=== PATIENT | male | born 1975 | race Caucasian/White ===

== ENCOUNTER 2023-08-25 10:08 | Emergency (ER) | payer SELFPAY ==
[2023-08-25] MEDS ORDERED: dexAMETHasone 10 MG/ML VIAL ONE (10:58)
[2023-08-25] MEDS ORDERED: METOCLOPRAMIDE 10 MG/2mL INJ ONE (10:58)
[2023-08-25] MEDS ORDERED: DIPHENHYDRAMINE 50 MG/ML VIAL ONE (10:58)
[2023-08-25] MEDS ORDERED: NA CHLORIDE 0.9% 1,000 ML ONE ×2 (10:59→11:14)
[2023-08-25] MEDS ORDERED: KETOROLAC 30 MG/ML INJ ONE (10:59)
[2023-08-25 11:01] LABS: Absolute Lymphocytes (CBC) 1.3 K/uL (0.7-4.9); Lymphocytes % 9.1 % (15.3-44.8); MCV 101.7 fL (80-100); MPV 6.9 fL (7.6-11.3); Platelets 233 thou/uL (152-406); RBC Red Blood Cell Count 4.43 M/uL (4.33-5.43)
[2023-08-25 11:19] LABS: Albumin 3.4 g/dL (3.4-5.0); Bilirubin Total 0.4 mg/dL (0.2-1.0); Potassium 3.1 mEq/L (3.5-5.1); Protein, Total 8.7 g/dL (6.4-8.2)
[2023-08-25 11:41] LABS: SARS-CoV-2 Antigen Rapid Res Negative (Negative)
--- NOTE | 2023-08-25 12:31 | EDPHYS ---
Physician Documentation [facility] Name: Clinton Marr Age: 48 yrs Sex: Male : 1975 Arrival Date: 08/25/2023 Time: 10:08 Bed 4 Private MD: ED Physician Esdras Goodwin HPI: 08/25 10:21 This 48 yrs old Male presents to ER via Unassigned with complaints of Flu Symptoms, ec2 Shortness Of Breath, Decreased Appetite. 10:34 Patient arrives today due to concern for 1 week of symptoms of cough cold symptoms. ec2 Patient reports to be having some congestion as well as cough, sore throat, decreased appetite with associated nausea, vomiting, diarrhea. Patient reports sick contacts at home with patients that have been flu be positive as well as COVID-positive. Patient denies any significant medical problems but however does smoke approximately half pack per day. Patient with no known history of COPD or asthma.. Historical: - Allergies: 10:23 No Known Allergies; mb9 - Home Meds: 10:23 None [Active]; mb9 - PMHx: 10:23 None; mb9 - PSHx: 10:23 right hand; mb9 - Immunization history:: Adult Immunizations up to date. - Social history:: Smoking status: Patient reports the use of cigarette tobacco products, denies chronic smoking, but will smoke occasionally. ROS: 10:34 Constitutional: as per hpi ec2 Exam: 10:34 Constitutional: GEN: NAD Head: atraumatic Eyes: EOMI Ears: External ears are normal. ec2 Mouth: Posterior pharyngeal erythema without exudates, no anterior cervical lymphadenopathy appreciated. No evidence of stridor, no issues managing secretions CV: regular rate LUNGS: no respiratory distress, occasional scattered wheeze noted throughout all lung john[place], good aeration throughout all lung johnston ABD: non-distended SKIN: no evidence of rashes MSK: no evidence of trauma NEURO: moves all extremities equally Vital Signs: 10:21 BP 86 / 68; Pulse 110; Resp 18; Temp 97.5(O); Pulse Ox 100% on R/A; Weight 65.77 kg; mb9 Height 5 ft. 6 in. ; Pain 7/10; 10:32 BP 121 / 95; Pulse 95; ec2 10:58 BP 134 / 86; Pulse 88; Resp 19; Pulse Ox 99% on R/A; os 11:24 BP 140 / 84; Pulse 81; ec2 12:04 BP 130 / 82; Pulse 81; ec2 10:21 Body Mass Index 23.40 (65.77 kg, 167.64 cm) mb9 10:21 Pain Scale: Adult mb9 MDM: 10:18 Patient medically screened. ec2 10:34 ED course: I was immediately available for consultation during this patient's visit. I ec2 did not personally see the patient or guide the patient's care. Patient arrives today due to concern for URI signs and symptoms ongoing for 1 week with multiple sick contacts. Examination remarkable for individual who had triage vital signs with tachycardia and hypotension noted however immediate repeat vital signs in room with appropriate blood pressure and more appropriate heart rate. Will obtain lab work-up, treat the patient's symptoms with crystalloid, Toradol, antiemetic as well as Benadryl, will obtain labs as well as swabs. Currently considering viral process, lower suspicion process such as strep pharyngitis or pneumonia. . 11:07 ED course: Of note patient does meet SIRS criteria with the initial documented ec2 tachycardia and a leukocytosis however I have a low clinical no suspicion for an acute bacterial infection and will currently defer antibiotic and septic work-up at this time.. 11:21 ED course: Metabolic profile slight hypokalemia and slight hyponatremia with some renal ec2 dysfunction noted with a creatinine 1.66 and a GFR 51. We will continue with crystalloid administration, potassium administration as well. . 11:50 ED course: Patient is negative for flu, negative for strep and negative for COVID. ec2 Chest x-ray independently reviewed and interpreted by me, shows no acute intrathoracic process. . 12:31 Data reviewed: vital signs. ED course: On reassessment patient reports marked ec2 improvement in his symptoms. I suspect presentation is consistent with a viral process. Will discharge home, return precautions given.. 08/25 10:34 Order name: CBC with Diff; Complete Time: 11:07 ec2 08/25 10:34 Order name: CMP; Complete Time: 11:21 ec2 08/25 10:34 Order name: Strep; Complete Time: 11:46 ec2 08/25 10:34 Order name: SARS RAPID; Complete Time: 11:46 ec2 08/25 10:34 Order name: Influenza Screen (a \T\ B); Complete Time: 11:49 ec2 08/25 11:44 Order name: Throat Culture EDMS 08/25 10:34 Order name: CXR XRAY; Complete Time: 12:52 ec2 Administered Medications: 10:55 Drug: metoCLOPramide IVP 10 mg IVP once; over 1 to 2 minutes Route: IVP; Site: right os antecubital; 10:55 Drug: diphenhydrAMINE IVP 25 mg IVP once Route: IVP; Site: right antecubital; os 10:56 Drug: NS 0.9% IV 1000 ml IV at 1 bolus Per protocol; 1000 mL bolus Route: IV; Rate: 1 os bolus; Site: right antecubital; 10:56 Drug: Decadron - Dexamethasone IVP 10 mg IVP once Route: IVP; Site: right antecubital; os 10:56 Drug: Ketorolac IVP 15 mg IVP once Route: IVP; Site: right antecubital; os 12:50 Drug: Potassium Chloride PO 40 mEq PO once Route: PO; os Disposition Summary: 08/25/23 12:31 Discharge Ordered Notes: Location: Home ec2 Condition: Stable ec2 Diagnosis - Viral infection, unspecified ec2 Discharge Instructions: - Discharge Summary Sheet ec2 - Viral Illness, Adult ec2 Forms: - Medication Reconciliation Form ec2 - Thank You Letter ec2 - Antibiotic Education ec2 - Prescription Opioid Use ec2 - Patient Portal Instructions ec2 - Leadership Thank You Letter ec2 Prescriptions: - Reglan 10 mg Oral Tablet - take 1 tablet ORAL route every 6 hours take 30 minutes before meals and at ec2 bedtime; 20 tablet; Refills: 0, Product Selection Permitted Signatures: Dispatcher [employer] Marianne Holland RN RN mb9 Saman Kwong RN RN os Esdras Goodwin MD MD ec2
--- NOTE | 2023-08-25 12:31 | ER ---
Nurse's Notes [facility] Name: Clitnon Marr Age: 48 yrs Sex: Male : 1975 Arrival Date: 08/25/2023 Time: 10:08 Bed 4 Private MD: Diagnosis: Viral infection, unspecified Presentation: 08/25 10:21 Chief complaint: Patient states: "I've been around my niece and coworker who has the mb9 flu and COVID and i've been sick for a week now. I have body aches, sore throat, cough, N/V/D, and loss of appetite. My right ear is hard to hear things out of". Coronavirus screen: Vaccine status: Patient reports being unvaccinated. Ebola Screen: No symptoms or risks identified at this time. Initial Sepsis Screen: Does the patient meet any 2 criteria? No. Patient's initial sepsis screen is negative. Does the patient have a suspected source of infection? No. Patient's initial sepsis screen is negative. Risk Assessment: Do you want to hurt yourself or someone else? Patient reports no desire to harm self or others. Onset of symptoms was August 25, 2023. 10:21 Method Of Arrival: Ambulatory mb9 10:21 Acuity: JORDON 3 mb9 Triage Assessment: 10:24 General: Appears in no apparent distress. Behavior is calm, cooperative. Pain: mb9 Complains of pain in entire body Quality of pain is described as aching. EENT: Reports nasal congestion pain in throat. Neuro: Escobar Agitation-Sedation Scale (RASS): 0 - Alert and Calm Level of Consciousness is awake, alert, obeys commands, Oriented to person, place, time, situation, Appropriate for age. Cardiovascular: Patient's skin is warm and dry. Respiratory: Reports cough that is Airway is patent Respiratory effort is even, unlabored, Respiratory pattern is regular, symmetrical. GI: Reports diarrhea, nausea, vomiting. : No signs and/or symptoms were reported regarding the genitourinary system. Derm: Skin is pink, warm \\T\\ dry. Musculoskeletal: Range of motion: intact in all extremities. Historical: - Allergies: 10:23 No Known Allergies; mb9 - Home Meds: 10:23 None [Active]; mb9 - PMHx: 10:23 None; mb9 - PSHx: 10:23 right hand; mb9 - Immunization history:: Adult Immunizations up to date. - Social history:: Smoking status: Patient reports the use of cigarette tobacco products, denies chronic smoking, but will smoke occasionally. Screenin:14 [facility] ED Fall Risk Assessment (Adult) History of falling in the last 3 months, os including since admission No falls in past 3 months (0 pts) Confusion or Disorientation No (0 pts) Intoxicated or Sedated No (0 pts) Impaired Gait No (0 pts) Mobility Assist Device Used No (0 pt) Altered Elimination No (0 pt) Score/Fall Risk Level 0 - 2 = Low Risk Oriented to surroundings. Abuse screen: Denies threats or abuse. Nutritional screening: No deficits noted. Tuberculosis screening: No symptoms or risk factors identified. Assessment: 10:56 Cardiovascular: Rhythm is sinus tachycardia. Respiratory: Airway is patent Trachea os midline Respiratory effort is labored, Respiratory pattern is regular, symmetrical, Vital Signs: 10:21 BP 86 / 68; Pulse 110; Resp 18; Temp 97.5(O); Pulse Ox 100% on R/A; Weight 65.77 kg; mb9 Height 5 ft. 6 in. ; Pain 7/10; 10:32 BP 121 / 95; Pulse 95; ec2 10:58 BP 134 / 86; Pulse 88; Resp 19; Pulse Ox 99% on R/A; os 11:24 BP 140 / 84; Pulse 81; ec2 12:04 BP 130 / 82; Pulse 81; ec2 10:21 Body Mass Index 23.40 (65.77 kg, 167.64 cm) mb9 10:21 Pain Scale: Adult mb9 ED Course: 10:18 Patient arrived in ED. mg5 10:18 Esdras Goodwin MD is Attending Physician. ec2 10:23 Triage completed. mb9 10:23 Arm band placed on. mb9 10:25 Patient placed in an exam room, on a stretcher. ll1 10:35 Saman Kwong, DENIS is Primary Nurse. os 10:57 No provider procedures requiring assistance completed. Inserted saline lock: 20 gauge os antecubital area, using aseptic technique. Blood collected. 11:43 CXR XRAY In Process Unspecified. EDMS 13:14 Patient has correct armband on for positive identification. Placed in gown. Bed in low os position. Call light in reach. Side rails up X2. Provided Education on: Flu symptom managment. 13:14 IV discontinued. os Administered Medications: 10:55 Drug: metoCLOPramide IVP 10 mg IVP once; over 1 to 2 minutes Route: IVP; Site: right os antecubital; 10:55 Drug: diphenhydrAMINE IVP 25 mg IVP once Route: IVP; Site: right antecubital; os 10:56 Drug: NS 0.9% IV 1000 ml IV at 1 bolus Per protocol; 1000 mL bolus Route: IV; Rate: 1 os bolus; Site: right antecubital; 10:56 Drug: Decadron - Dexamethasone IVP 10 mg IVP once Route: IVP; Site: right antecubital; os 10:56 Drug: Ketorolac IVP 15 mg IVP once Route: IVP; Site: right antecubital; os 12:50 Drug: Potassium Chloride PO 40 mEq PO once Route: PO; os Medication: 13:14 VIS not applicable for this client. os Outcome: 12:31 Discharge ordered by . ec2 13:14 Discharged to home ambulatory, os 13:14 Condition: improved 13:14 Discharge instructions given to patient, Instructed on discharge instructions, follow up and referral plans. medication usage, Demonstrated understanding of instructions, follow-up care, medications, Prescriptions given X 1, 13:15 Patient left the ED. os Signatures: Dispatcher [employer] Emily Sumner RN RN ll1 Marianne Goetz RN RN mb9 Saman Kwong RN RN os [facility] mg5 Esdras Goodwin MD MD ec2 Corrections: (The following items were deleted from the chart) 10:25 10:21 Pulse 110bpm; Resp 18bpm; Pulse Ox 100% RA; Temp 97.5F Oral; 65.77 kg; Height 5 mb9 ft. 6 in.; BMI: 23.4; Pain 7/10, Adult; mb9 10:25 10:21 Acuity: JORDON 4 mb9 mb9 10:32 10:24 EENT: No signs and/or symptoms were reported regarding the EENT system. mb9 mb9
--- NOTE | 2023-08-25 12:40 | RAD REPORT ---
EXAM DESCRIPTION: RAD - Chest Single View - 08/25/2023 11:42 am CLINICAL HISTORY: COUGH Chest pain. COMPARISON: No comparisons FINDINGS: Portable technique limits examination quality. The lungs are grossly clear. The heart is normal in size. No displaced fractures. IMPRESSION: No acute intrathoracic process suspected.
[2023-08-25] MEDS ORDERED: POTASSIUM CL SA 10 MEQ TAB PO ONE (13:26)
[2023-08-25 13:39] VITALS: TEMP 97.5
[2023-08-25 13:45] VITALS: O2SAT 99
[2023-08-25 13:47] VITALS: BP 130/82
== END 2023-08-25 13:15 | disposition home or self-care (01) ==
LOC: ER 10:08
DX: B34.9 Viral infection, unspecified (principal); Z11.52 Encounter for screening for COVID-19
CPT/HCPCS: 36415; 71045; 80053; 85025; 87070; 87081; 87804; 87811; 96374; 96375; 99284; J1100; J1200; J2765; J7030